=== PATIENT | female | born 1985 | race Caucasian/White ===

== ENCOUNTER 2016-09-18 11:37 | Inpatient (IN) | payer OTHER ==
[~2016-09-18] VITALS: Ht 160 cm; Wt 54.8 kg
[2016-09-18] MEDS ORDERED: FAMOTIDINE 20 MG/2 ML ONE (12:26)
[2016-09-18] MEDS ORDERED: ONDANSETRON 2MG/ML, 2ML ONE (12:26)
[2016-09-18] MEDS ORDERED: LORazepam 2 MG/ML, 1ML ONE ×2 (12:27→17:38)
[2016-09-18] MEDS ORDERED: SODIUM CHLORIDE FLUSH 10ML SYR IVF ONE (12:30)
[2016-09-18] MEDS ORDERED: SODIUM CHLORIDE 0.9% 1,000ML IVBOLUS ONE (12:30)
[2016-09-18] MEDS ORDERED: FAMOTIDINE 20 MG/2 ML IVP ONE (12:30)
[2016-09-18] MEDS ORDERED: ONDANSETRON 2MG/ML, 2ML IVPush ONE (12:30)
[2016-09-18] MEDS ORDERED: LORazepam 2 MG/ML, 1ML IVPush ONE (12:30)
[2016-09-18 12:56] LABS: ASPARTATE AMINO TRANSFERASE 253 U/L (15-37); BLOOD UREA NITROGEN 5 mg/dL (7-18)
[2016-09-18 13:10] LABS: ACETAMINOPHEN < 2 mcg/mL (10-30); HEMATOCRIT 47.1 % (34.6-47.8); HEMOGLOBIN 15.9 g/dL (11.7-16.4); WHITE BLOOD COUNT 3.6 x10^3/uL (3.4-10)
[2016-09-18] MEDS ORDERED: SODIUM CHLORIDE 0.9% 1,000 ML IV ONE (13:21)
[2016-09-18] MEDS ORDERED: SODIUM CHLORIDE FLUSH 10ML SYR IVF PRN (13:30)
[2016-09-18] MEDS ORDERED: THIAMINE 100MG TABLET PO ONE (13:30)
[2016-09-18] MEDS ORDERED: MORPHINE SULFATE 4 MG/ML, 1ML ONE ×2 (14:11→15:41)
[2016-09-18] MEDS: MORPHINE SULFATE 4 MG/ML, 1ML IVPush PRN ×2 (14:16→15:45)
[2016-09-18] MEDS ORDERED: POTASSIUM CHLORIDE 40 MEQ in SODIUM CHLORIDE 0.9% 500 ML IV ONE (15:00)
[2016-09-18] MEDS ORDERED: ACETAMINOPHEN 325 MG TABLET PO PRN (15:00)
[2016-09-18] MEDS ORDERED: ONDANSETRON 2MG/ML, 2ML IVPush PRN (15:00)
[2016-09-18] MEDS: SODIUM CHLORIDE 0.9% 1,000 ML IV SCH (17:03)
[2016-09-18] MEDS: NICOTINE 14MG/24 HR PATCH.TD24 TD SCH (17:04)
[2016-09-18 17:19] LABS: DAU SCREEN DISCLAIMER
[2016-09-18] MEDS ORDERED: HALOPERIDOL 5 MG/ML IM PRN (17:30)
[2016-09-18 17:32] LABS: PATH.CAST-FLAG NOT PRESENT; SPERM-FLAG NOT PRESENT; SRC-FLAG NOT PRESENT; XTAL-FLAG NOT PRESENT; YLC-FLAG NOT PRESENT
[2016-09-18] MEDS: LORazepam 2 MG/ML, 1ML IVPush PRN ×2 (17:45→22:07)
[2016-09-18 19:05] VITALS: BP 125/82
[2016-09-18] MEDS: PANTOPRAZOLE 40 MG IV IVPush SCH (20:22)
[2016-09-18] MEDS: morphine SULFATE 10 MG/ML, 1ML IVPush PRN (20:31)
[2016-09-18] MEDS: POTASSIUM CHLORIDE 20 MEQ, MAGNESIUM SULFATE 1 GM, THIAMINE 100 MG, FOLIC ACID 1 MG, MV... IV SCH (22:54)
[2016-09-18] MEDS ORDERED: NEOSPORIN OINT, 15GM TP PRN (23:30)
[2016-09-19 01:23] VITALS: BP 138/92
[2016-09-19] MEDS: LORazepam 2 MG/ML, 1ML IVPush PRN ×3 (05:06→21:19)
[2016-09-19] MEDS: morphine SULFATE 10 MG/ML, 1ML IVPush PRN ×6 (05:35→23:40)
[2016-09-19 05:43] LABS: ASPARTATE AMINO TRANSFERASE 162 U/L (15-37); BLOOD UREA NITROGEN 3 mg/dL (7-18)
[2016-09-19] MEDS ORDERED: MORPHINE SULFATE 4 MG/ML, 1ML ONE ×2 (08:28→14:45)
[2016-09-19] MEDS: PANTOPRAZOLE 40 MG IV IVPush SCH ×2 (08:37→20:41)
[2016-09-19] MEDS ORDERED: POTASSIUM PHOSPHATE 44 MEQ in SODIUM CHLORIDE 0.9% 500 ML IV ONE (09:00)
[2016-09-19] MEDS ORDERED: MAGNESIUM SULFATE PMX 2GM/50ML 50 ML IV ONE (09:00)
[2016-09-19] MEDS ORDERED: POTASSIUM PHOSPHATE 44 MEQ in SODIUM CHLORIDE 0.9% 500 ML IV SCH ×2 (09:00→15:00)
[2016-09-19 09:18] VITALS: BP 126/93
[2016-09-19] MEDS: HYDROcodone/APAP 5/325 TABLET PO PRN (11:52)
[2016-09-19 14:04] VITALS: BP 143/89
[2016-09-19] MEDS: NICOTINE 14MG/24 HR PATCH.TD24 TD SCH (16:10)
[2016-09-19 20:27] VITALS: BP 145/104
[2016-09-19 20:35] VITALS: BP 156/107
[2016-09-19] MEDS: POTASSIUM CHLORIDE 20 MEQ, MAGNESIUM SULFATE 1 GM, THIAMINE 100 MG, FOLIC ACID 1 MG, MV... IV SCH (23:23)
[2016-09-20] VITALS (7 sets, daily range): BP systolic 126–155; BP diastolic 76–113
[2016-09-20] MEDS: morphine SULFATE 10 MG/ML, 1ML IVPush PRN ×7 (02:48→23:46)
[2016-09-20] MEDS: hydrALAzine 20 MG/ML, 1ML IVPush PRN ×2 (03:41→15:43)
[2016-09-20] MEDS: LORazepam 2 MG/ML, 1ML IVPush PRN (04:15)
[2016-09-20] MEDS: HYDROcodone/APAP 5/325 TABLET PO PRN (04:21)
[2016-09-20 05:23] LABS: ASPARTATE AMINO TRANSFERASE 141 U/L (15-37); BLOOD UREA NITROGEN 1 mg/dL (7-18)
[2016-09-20] MEDS: PANTOPRAZOLE 40 MG IV IVPush SCH ×2 (07:59→21:24)
[2016-09-20] MEDS: SODIUM CHLORIDE 0.9% 1,000 ML IV SCH ×2 (11:59→17:38)
[2016-09-20] MEDS ORDERED: LORazepam 2 MG/ML, 1ML IVPush ONE (12:30)
[2016-09-20] MEDS ORDERED: MORPHINE SULFATE 4 MG/ML, 1ML ONE (14:14)
[2016-09-20] MEDS: KETOROLAC 30 MG/1 ML IV PRN ×2 (15:59→22:02)
[2016-09-20] MEDS ORDERED: KETOROLAC 30 MG/1 ML IV SCH (16:00)
[2016-09-20] MEDS: NICOTINE 14MG/24 HR PATCH.TD24 TD SCH (17:00)
[2016-09-20] MEDS: POTASSIUM CHLORIDE 20 MEQ, MAGNESIUM SULFATE 1 GM, THIAMINE 100 MG, FOLIC ACID 1 MG, MV... IV SCH (23:00)
[2016-09-21 01:31] VITALS: BP 138/88
[2016-09-21] MEDS: morphine SULFATE 10 MG/ML, 1ML IVPush PRN ×5 (03:37→19:16)
[2016-09-21 05:48] LABS: BLOOD UREA NITROGEN 1 mg/dL (7-18)
[2016-09-21 05:52] LABS: ASPARTATE AMINO TRANSFERASE 67 U/L (15-37)
[2016-09-21] MEDS: KETOROLAC 30 MG/1 ML IV PRN ×3 (05:56→18:32)
[2016-09-21] MEDS: PANTOPRAZOLE 40 MG IV IVPush SCH ×2 (07:31→21:27)
[2016-09-21 08:04] VITALS: BP 125/81
[2016-09-21] MEDS: SODIUM CHLORIDE 0.9% 1,000 ML IV SCH ×2 (09:12→16:34)
[2016-09-21 14:02] VITALS: BP 143/88
[2016-09-21] MEDS: NICOTINE 14MG/24 HR PATCH.TD24 TD SCH (16:34)
[2016-09-21] MEDS ORDERED: POTASSIUM PHOSPHATE 44 MEQ in SODIUM CHLORIDE 0.9% 500 ML IV ONE (17:30)
[2016-09-21 19:29] VITALS: BP 147/103
[2016-09-21 20:19] VITALS: BP 132/89
[2016-09-21] MEDS: LORazepam 2 MG/ML, 1ML IVPush PRN (20:46)
[2016-09-21] MEDS: hydrALAzine 20 MG/ML, 1ML IVPush PRN (20:55)
[2016-09-21] MEDS ORDERED: LORazepam 2 MG/ML, 1ML IVPush PRN (21:30)
[2016-09-21 21:57] VITALS: BP 130/85
[2016-09-22] MEDS: morphine SULFATE 10 MG/ML, 1ML IVPush PRN ×6 (00:33→19:37)
[2016-09-22 00:38] VITALS: BP 123/84
[2016-09-22] MEDS: KETOROLAC 30 MG/1 ML IV PRN ×3 (02:09→18:04)
[2016-09-22] MEDS: SODIUM CHLORIDE 0.9% 1,000 ML IV SCH ×4 (02:18→21:35)
[2016-09-22 05:20] LABS: BLOOD UREA NITROGEN 2 mg/dL (7-18)
[2016-09-22 05:24] LABS: ASPARTATE AMINO TRANSFERASE 58 U/L (15-37)
[2016-09-22 08:10] VITALS: BP 123/88
[2016-09-22] MEDS: PANTOPRAZOLE 40 MG IV IVPush SCH ×2 (08:11→19:37)
[2016-09-22] MEDS: THIAMINE 100MG TABLET PO SCH (08:12)
[2016-09-22] MEDS: FOLIC ACID 1 MG TABLET PO SCH (08:12)
[2016-09-22] MEDS: LORazepam 2 MG/ML, 1ML IVPush PRN ×2 (10:01→21:32)
[2016-09-22 13:40] VITALS: BP 131/89
[2016-09-22] MEDS: NICOTINE 14MG/24 HR PATCH.TD24 TD SCH (15:10)
[2016-09-22 19:34] VITALS: BP 134/95
[2016-09-23] MEDS: KETOROLAC 30 MG/1 ML IV PRN ×3 (00:45→18:40)
[2016-09-23 00:47] VITALS: BP 138/88
[2016-09-23] MEDS: SODIUM CHLORIDE 0.9% 1,000 ML IV SCH ×4 (04:17→22:08)
[2016-09-23] MEDS: morphine SULFATE 10 MG/ML, 1ML IVPush PRN ×5 (04:35→23:37)
[2016-09-23 05:27] LABS: HEMATOCRIT 33.6 % (34.6-47.8); HEMOGLOBIN 11.4 g/dL (11.7-16.4); WHITE BLOOD COUNT 3.1 x10^3/uL (3.4-10)
[2016-09-23 06:01] LABS: ASPARTATE AMINO TRANSFERASE 49 U/L (15-37); BLOOD UREA NITROGEN 1 mg/dL (7-18)
[2016-09-23] MEDS: PANTOPRAZOLE 40 MG IV IVPush SCH (08:48)
[2016-09-23] MEDS: THIAMINE 100MG TABLET PO SCH (08:48)
[2016-09-23] MEDS: FOLIC ACID 1 MG TABLET PO SCH (08:48)
[2016-09-23] MEDS: LORazepam 2 MG/ML, 1ML IVPush PRN ×2 (08:48→19:29)
[2016-09-23 09:15] VITALS: BP 166/122
[2016-09-23 12:44] VITALS: BP 142/98
[2016-09-23] MEDS: NICOTINE 14MG/24 HR PATCH.TD24 TD SCH (17:00)
[2016-09-23 19:07] VITALS: BP 156/114
[2016-09-23] MEDS: PANTOPROZOLE 40MG TABLET PO SCH (19:29)
[2016-09-23 20:03] VITALS: BP 162/127
[2016-09-23] MEDS: hydrALAzine 20 MG/ML, 1ML IVPush PRN (20:03)
[2016-09-23 20:25] VITALS: BP 144/99
[2016-09-24] MEDS: KETOROLAC 30 MG/1 ML IV PRN ×2 (01:36→10:36)
[2016-09-24 01:41] VITALS: BP 126/84
[2016-09-24] MEDS: morphine SULFATE 10 MG/ML, 1ML IVPush PRN ×4 (04:18→19:25)
[2016-09-24] MEDS: SODIUM CHLORIDE 0.9% 1,000 ML IV SCH ×2 (04:26→11:07)
[2016-09-24] MEDS: THIAMINE 100MG TABLET PO SCH (08:47)
[2016-09-24] MEDS: FOLIC ACID 1 MG TABLET PO SCH (08:47)
[2016-09-24] MEDS: PANTOPROZOLE 40MG TABLET PO SCH ×2 (08:47→17:00)
[2016-09-24 12:20] VITALS: BP 172/120
[2016-09-24] MEDS: LORazepam 2 MG/ML, 1ML IVPush PRN ×2 (12:32→19:52)
[2016-09-24] MEDS: hydrALAzine 20 MG/ML, 1ML IVPush PRN (12:32)
[2016-09-24] MEDS: NICOTINE 14MG/24 HR PATCH.TD24 TD SCH (15:17)
[2016-09-24] MEDS ORDERED: POLYETHYLENE GLYCOL 17 GM PACKET NG PRN (16:00)
[2016-09-24] MEDS ORDERED: IBUPROFEN 600 MG TABLET PO PRN (17:30)
[2016-09-24] MEDS: OXYcodone/APAP 5/325MG TABLET PO PRN (18:07)
[2016-09-24 20:15] VITALS: BP 141/102
[2016-09-25] VITALS (7 sets, daily range): BP systolic 119–175; BP diastolic 79–131
[2016-09-25] MEDS: morphine SULFATE 10 MG/ML, 1ML IVPush PRN ×4 (00:16→12:23)
[2016-09-25] MEDS: FOLIC ACID 1 MG TABLET PO SCH (09:17)
[2016-09-25] MEDS: THIAMINE 100MG TABLET PO SCH (09:17)
[2016-09-25] MEDS: PANTOPROZOLE 40MG TABLET PO SCH ×2 (09:17→17:49)
[2016-09-25] MEDS ORDERED: KETOROLAC 10MG TABLET PO SCH (12:30)
[2016-09-25] MEDS ORDERED: POLYETHYLENE GLYCOL 17 GM PACKET NG SCH (13:00)
[2016-09-25] MEDS ORDERED: FENTANYL 50 MCG PATCH TD SCH (13:00)
[2016-09-25] MEDS: NICOTINE 14MG/24 HR PATCH.TD24 TD SCH (17:00)
[2016-09-25] MEDS: OXYcodone/APAP 5/325MG TABLET PO PRN (17:49)
[2016-09-25] MEDS ORDERED: POLYETHYLENE GLYCOL 17 GM PACKET PO ONE (18:00)
[2016-09-25] MEDS ORDERED: KETOROLAC 10MG TABLET PO PRN (18:30)
[2016-09-25] MEDS: hydrALAzine 20 MG/ML, 1ML IVPush PRN (19:46)
[2016-09-26] MEDS: OXYcodone/APAP 5/325MG TABLET PO PRN ×3 (01:29→12:26)
[2016-09-26] MEDS ORDERED: BISACODYL 10 MG SUPP PR PRN ×2 (01:30)
[2016-09-26 02:06] VITALS: BP 123/84
[2016-09-26] MEDS: FOLIC ACID 1 MG TABLET PO SCH (07:22)
[2016-09-26] MEDS: PANTOPROZOLE 40MG TABLET PO SCH (07:22)
[2016-09-26] MEDS: THIAMINE 100MG TABLET PO SCH (07:22)
[2016-09-26] MEDS ORDERED: POLYETHYLENE GLYCOL 17 GM PACKET NG SCH (09:00)
[2016-09-26 09:28] VITALS: BP 123/84
[2016-09-26] MEDS ORDERED: ONDA4TAB13 SL (09:32)
[2016-09-26] MEDS ORDERED: FOLI-17 PO (09:32)
[2016-09-26] MEDS ORDERED: FENT1PAT76 TD (09:32)
[2016-09-26] MEDS ORDERED: KETO10TA PO (09:32)
[2016-09-26] MEDS ORDERED: NICO1PAT4 TD (09:32)
[2016-09-26] MEDS ORDERED: POLY17PO5 NG (09:32)
[2016-09-26] MEDS ORDERED: OMEP-110 PO (09:32)
[2016-09-26] MEDS ORDERED: THIA100T6 PO (09:32)
[2016-09-26] MEDS ORDERED: OXYC5TAB3 PO (09:32)
[2016-09-26] MEDS ORDERED: MAGN400T26 PO (09:34)
[2016-09-26] MEDS ORDERED: LORA-446 PO (09:34)
[2016-09-26] MEDS ORDERED: ONDANSETRON 2MG/ML, 2ML IVPush PRN (14:30)
[2016-09-26] MEDS ORDERED: HALOPERIDOL 5 MG/ML IM PRN (14:30)
== END 2016-09-26 15:21 | disposition home or self-care (01) | DRG 432 ==
LOC: ED 13:20 → MERGE 13:20 → EDIP 13:21 → SUATTDRO 14:12 → 3NE 16:25
PROVIDERS: ADMIT Internal Medicine; ATTEND Internal Medicine
DX: K70.10 Alcoholic hepatitis without ascites (principal); K85.20 Alcohol induced acute pancreatitis without necrosis or infection; E87.2 Acidosis; F10.239 Alcohol dependence with withdrawal, unspecified; F19.959 Other psychoactive substance use, unspecified with psychoactive substance-induced psychotic disorder, unspecified; I10 Essential (primary) hypertension; E87.6 Hypokalemia; F10.229 Alcohol dependence with intoxication, unspecified; F41.9 Anxiety disorder, unspecified; Y90.5 Blood alcohol level of 100-119 mg/100 ml; G89.29 Other chronic pain; Z79.891 Long term (current) use of opiate analgesic; Z80.3 Family history of malignant neoplasm of breast; Z87.891 Personal history of nicotine dependence; Z79.899 Other long term (current) drug therapy
CPT/HCPCS: 36415; 80053; 80307; 80329; 81001; 82962; 83690; 83735; 84100; 84703; 85025; 86704; 86706; 86708; 86803; 87340; 93005; 96374; 96375; 96376; J1885; J2405; J3411; J3475; J3480; C9113; G0480; J0360; J2060; J2270; J7030; J7040; S0028